=== PATIENT | female | born 1985 | race Caucasian/White ===

== ENCOUNTER 2019-05-16 10:40 | Emergency (ER) | payer OTHER, SELFPAY ==
--- NOTE | ~2019-05-16 | XR_ITS ---
EXAMINATION: XR chest 2V DATE: 05/16/2019 11:37 INDICATION: Cough. TECHNIQUE: Frontal and lateral views of the chest were obtained. COMPARISON: None. FINDINGS: Calcified left lung nodules and calcified left hilar lymph nodes are consistent with old gr anulomatous disease. No pleural effusion or pneumothorax. The heart size is normal. IMPRESSION: 1. No acute cardiopulmonary disease. Reviewed, dictated and finalized at location A. INSTALLER
[2019-05-16 10:55] VITALS: BP 142/79; PULSE 94; RESP 16; TEMP 37.2; O2SAT 98
--- NOTE | 2019-05-16 11:19 | ED.GENADULT ---
HPI - General Adult General Chief complaint: Skin/Abscess/Foreign Body Stated complaint: knots behind lt ear Time Seen by Provider: 05/16/19 11:20 Source: patient and RN notes reviewed Mode of arrival: ambulatory Limitations: no limitations History of Present Illness HPI narrative: 33-year-old female presents with complaints of painful knots behind LT ear for the past 7 days. Denies redness, open areas, or drainage. Chest congestion for the last 4-5 months. Dry cough is persistent, worse when she/he lies down. Feels ill. Chest feels Heavy. Short of breath when ambulating and at rest. Denies high fever or chills. No treatmeant. Exacerbating factors consist of smoke exposure. No nausea, vomiting, and abdominal pain. Denies chest pain, wheezing, coughing up blood, difficulty swallowing, jaw pain, dental pain, facial pain, foreign body sensation, and rash. Some parts of this dictation were generated by voice recognition software and may contain typographical and/or grammatical inaccuracies. Related Data Home Medications Medication Instructions Recorded Confirmed buprenorphine-naloxone 8 film SUBLINGUAL 05/16/19 fluoxetine [Prozac] 40 mg PO BID 05/16/19 05/16/19 hydroxyzine HCl 50 mg PO TID 05/16/19 05/16/19 Allergies Allergy/AdvReac Type Severity Reaction Status Date / Time codeine Allergy Intermediate hives Verified 05/16/19 11:00 Review of Systems Review of Systems: Narrative: CONSTITUTIONAL: Denies fever, chills, sweats. EYES: Denies visual changes, redness, discharge. ENT: Complains of rhinorrhea, congestion. Denies sore throat, bilateral otalgia. CARDIOVASCULAR: Denies chest pain, palpitations, edema. RESPIRATORY: Denies wheezing. Complains of dyspnea, persistent dry cough, intermittent productive. GASTROINTESTINAL: Denies abdominal pain, nausea, vomiting, diarrhea. GENITOURINARY: Denies dysuria, hematuria, abnormal discharge. SKIN: SKIN: Denies rash or itching. Complaints of painful knots behind LT ear. MUSCULOSKELETAL: Denies acute back pain, joint pain, or myalgia. NEUROLOGIC: Denies numbness or focal weakness. PSYCHIATRIC: Denies anxiety or depression. [facility] Past Medical History Medical History (Updated 05/22/19 @ 00:32 by APRYL Kaufman) Anxiety Asthma childhood Back pain Depression Substance abuse Surgical History Surgical History (Updated 05/22/19 @ 00:19 by APRYL Kaufman) H/O section X4 Family History Family History (Updated 05/22/19 @ 00:20 by APRYL Kaufman) Other No significant family history Social History Social History (Updated 05/22/19 @ 00:22 by APRYL Kaufman) Smoking status: Current every day smoker Second hand tobacco smoke exposure: No Alcohol intake: former Substance use: former Substance use type: painkillers Last use: 2 years ago, currently on Suboxone Living arrangements: with family Gender identity (if verbalized by the patient): Female Comments At time of signature, agree with nurse past medical, surgical, social, and family history. There is no relevant family history pertinent to the presenting complaint. Exam Narrative: Exam Narrative: GENERAL: This is a well-nourished, well-developed patient, in no apparent distress. Talking in full sentences without deficit and ambulate with steady gait without dyspnea. HEAD: normocephalic, atraumatic. EYES: PERRL. Sclera clear/white. Vision is grossly intact. EARS: Pinna is normal shape and contour. Clear external auditory canals. TMs pearly pal[place] with good cone of light, no erythema or suppuration. No gross hearing deficit. LT ear has 1 less than 0.1cm non-tender posterior auricular lymph node, skin intact, no swelling, erythma, or drainage. NOSE: pink, moist mucosa with good air movement. Mild erythema and enlrged turbinates, clear rhinorrhea. Mouth: moist mucous membranes. THROAT: Mucous membranes moist, posterior pharynx clear. NECK: Ne
[2019-05-16] MEDS: ALBUTEROL SULFATE NEB 2.5 MG/3 ML INH INHALATION (11:40)
[2019-05-16] MEDS: IPRATROPIUM BR 0.02% INH SOLN 0.5 MG/2.5 ML VIAL INHALATION (11:40)
[2019-05-16] MEDS: predniSONE 20 MG TABLET 60 MG PO (11:41)
== END 2019-05-16 12:28 | disposition home or self-care (01) ==
PROVIDERS: Emergency Provider Nurse Practitioner Family
DX: R59.9 Enlarged lymph nodes, unspecified (principal); J40 Bronchitis, not specified as acute or chronic
CPT/HCPCS: 71046; 94640; 99213; G0463; J7512

== ENCOUNTER 2019-08-24 17:16 | Emergency (ER) | payer OTHER, SELFPAY ==
--- NOTE | 2019-08-24 17:27 | ED.LOWEXIN ---
HPI - Extremity Injury (Lower) General Chief Complaint: Extremity Injury, Lower Stated Complaint: swollen right leg Time Seen by Provider: 08/24/19 17:34 Source: patient and RN notes reviewed Mode of arrival: ambulatory Limitations: no limitations History of Present Illness HPI Narrative: 34-year-old female with no history of cardiac or kidney problems presents with concern for right lower leg swelling. Denies injury, trauma, pain, bruising. Reports swelling for several days. Denies any history of similar problems in the past. Denies any trouble breathing, chest pain, cough. Denies calf pain, redness, swelling, tenderness Related Data Home Medications Medication Instructions Recorded Confirmed buprenorphine-naloxone 8 film SUBLINGUAL 05/16/19 fluoxetine [Prozac] 40 mg PO BID 05/16/19 05/16/19 hydroxyzine HCl 50 mg PO TID 05/16/19 05/16/19 Allergies Allergy/AdvReac Type Severity Reaction Status Date / Time codeine Allergy Intermediate hives Verified 05/16/19 11:00 Review of Systems Review of Systems: Narrative: CONSTITUTIONAL: Denies malaise, chills, sweats, or fever. EYES: Denies visual changes, redness, or discharge. CARDIOVASCULAR: Denies chest pain, palpitations. Reports right lower leg anterior edema RESPIRATORY: Denies cough or dyspnea. GENITOURINARY: Denies dysuria or hematuria. SKIN: Denies redness, bruising, rash or itching. MUSCULOSKELETAL: Denies lower leg pain NEUROLOGIC: Denies numbness, weakness, or headache. All systems reviewed & are unremarkable except as noted in HPI and below PMFSH Past Medical History Medical History (Updated 08/24/19 @ 17:44 by Lissette Arias NP) Anxiety Asthma childhood Back pain Depression Substance abuse Surgical History Surgical History (Updated 05/22/19 @ 00:19 by APRYL Kaufman) H/O section X4 Family History Family History (Updated 05/22/19 @ 00:20 by APRYL Kaufman) Other No significant family history Social History Social History (Updated 05/22/19 @ 00:22 by APRYL Kaufman) Smoking status: Current every day smoker Second hand tobacco smoke exposure: No Alcohol intake: former Substance use: former Substance use type: painkillers Last use: 2 years ago, currently on Suboxone Gender identity (if verbalized by the patient): Female Comments At time of signature, agree with nursing past medical, surgical, social and family history. There is no relevant family history pertinent to the presenting complaint Exam Narrative: Exam Narrative: GENERAL: Well-appearing, well-nourished, and in no acute distress. HEAD: Normocephalic, atraumatic. EYES: PERRLA, conjunctivae clear NECK: Supple. CHEST: Speaks in full sentences. No respiratory distress. HEART: Regular rate and rhythm. Normal and equal peripheral pulses. EXTREMITIES: Right lower leg has normal strength and sensation, normal range of motion. 1+ pitting anterior edema. Normal sensation with sensitivity to light touch and pain. No open wounds, no skin tenting, no devitalized tissue or atrophy, no trophic changes, no ecchymosis, no obvious deformity, alignment normal, no point tenderness, nearby joints and structures intact. Distal pulses palpable and equal bilaterally, skin warm, dry, pink. Capillary refill less than 3 seconds. No claudication, erythema, warmth, tenderness SKIN: Warm, dry, no rash. NEURO: Alert and oriented x3. PSYCH: Normal mood and affect Course Course Emergency Course: Discussed with patient limited diagnostic capability [facility] the [facility], transferring to emergency room for further evaluation or following up with her primary care provider. Patient chooses to follow-up with primary care provider. Patient is aware of diagnosis, understands and agrees to treatment plan. Anticipatory guidance given. Patient agrees to follow-up as directed and is aware of reasons to seek care at the emergency department. Portions of this rec
[2019-08-24 17:35] VITALS: BP 136/69; PULSE 82; RESP 16; TEMP 35.7; O2SAT 100
== END 2019-08-24 17:55 | disposition home or self-care (01) ==
PROVIDERS: Emergency Provider Nurse Practitioner; PCP Emergency Medicine
DX: M79.89 Other specified soft tissue disorders (principal); R60.9 Edema, unspecified; F17.210 Nicotine dependence, cigarettes, uncomplicated
CPT/HCPCS: 99213; G0463

== ENCOUNTER 2019-12-20 15:21 | Emergency (ER) | payer OTHER, SELFPAY ==
[2019-12-20] VITALS (7 sets, daily range): BP systolic 120–147; BP diastolic 80–99; PULSE 66–124; RESP 15–22; TEMP 36.6–36.9; O2SAT 96–100
[2019-12-20] MEDS: DICYCLOMINE HCL INJ 20 MG/2 ML VIAL IM (16:45)
[2019-12-20] MEDS: SODIUM CHLORIDE 0.9% IV 1,000 ML 999 ML IV CONT (16:45)
--- NOTE | 2019-12-20 16:58 | PC.NURSE ---
Pt expressed SI to this RN during medication administration. States I dont want to live like this, Im under a lot of stress. Its causing me to want to kill myself. I just want my pain to end. Im so miserable, It makes me want hurt myself. This RN clarified and questioned patient if she is suicidal or having suicidal thoughts. Pt states Yes, right now I am. I have been lately, but I am laying here thinking I want to end it all. I want to cut my wrist. EDP made aware, Pt placed in green scrubs, items removed from room. Belongings placed in safe. Sitter at bedside. Pt on tele monitor, VSS.
--- NOTE | 2019-12-20 17:02 | PC.NURSE ---
Pt unable to provide u/a sample at this time, requesting to wait until fluids infuse. Declined straight cath.
[2019-12-20 17:14] LABS: Basophils Percent Auto 0.3 % (0.2-1.2); Eosinophils Percent Auto 0.2 % (0-4.4); Hematocrit 37.9 % (37.0-47.0); Hemoglobin 13.1 g/dL (12.0-15.0); Immature Granulocyte Absolute 0.04 K/mm3 (0.00-0.031); Immature Granulocyte Percent A 0.4 % (0-0.5); Lymphocytes Absolute Auto 1.74 K/mm3 (0.9-3.2); Lymphocytes Percent Auto 17.2 % (18.3-44.2); Mean Corpuscular HGB Conc 34.6 g/dl (32-36); Mean Corpuscular Hemoglobin 29.7 pg (26-34); Mean Corpuscular Volume 85.9 fl (80-100); Mean Platelet Volume 9.8 fl (7.4-10.4); Monocytes Absolute Auto 0.5 K/mm3 (0.1-0.6); Monocytes Percent Auto 4.8 % (2.6-8.5); Neutrophils Absolute Auto 7.8 K/mm3 (1.3-6.7); Neutrophils Percent Auto 77.1 % (45.5-73.1); Platelet Count Result 317 k/mm3 (150-375); Red Blood Count 4.41 M/mm3 (4.2-5.4); Red Cell Distribution Width 14.5 % (11.5-14.5); White Blood Count 10.1 K/mm3 (4.5-10.0)
[2019-12-20 17:23] LABS: Alanine Aminotransferase 25 U/L (4-35); Albumin Level 4.9 g/dL (3.5-5.1); Alkaline Phosphatase 59 U/L (38-126); Anion Gap 9 mmol/L (8-16); Aspartate Amino Transferase 21 U/L (14-36); Bilirubin,Total 0.8 mg/dL (0.2-1.3); Blood Urea Nitrogen 14 mg/dL (7-17); Calcium 9.4 mg/dL (8.4-10.2); Carbon Dioxide 21 mmol/L (22-30); Chloride 108 mmol/L (98-107); Estimated CRCL calculation 78 ml/min; Estimated Glomerular Filt Rate > 60; Glucose 99 mg/dL (65-105); Lipase 55 U/L (23-300); Sodium 138 mmol/L (137-145)
--- NOTE | 2019-12-20 17:44 | ED.GENADULT ---
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 Patient complaining of jerky legs, jerking neck, shortness of breath, diaphoresis, stomach upset and diarrhea. Last fentanyl use 3 days ago. Patient scheduled to start Suboxone on December 24. Patient does not feel that she could go back home and would like to go to [place] or [place]. Patient reported suicidal ideation, does not have a specific plan. Related Data Home Medications Medication Instructions Recorded Confirmed buprenorphine-naloxone 8 film SUBLINGUAL 05/16/19 fluoxetine [Prozac] 40 mg PO BID 05/16/19 05/16/19 hydroxyzine HCl 50 mg PO TID 05/16/19 05/16/19 Allergies Allergy/AdvReac Type Severity Reaction Status Date / Time codeine Allergy Intermediate hives Verified 12/20/19 15:42 Review of Systems Review of Systems: Narrative: CONSTITUTIONAL: Denies fever, chills, or sweats. EYES: Denies visual changes, redness, or discharge. ENT: Denies rhinorrhea, congestion, sore throat, or otalgia. CARDIOVASCULAR: Denies chest pain, palpitations, or edema. RESPIRATORY: Denies cough or dyspnea. GASTROINTESTINAL: Denies abdominal pain, nausea, vomiting, or diarrhea. GENITOURINARY: Denies dysuria or hematuria. SKIN: Denies rash or itching. MUSCULOSKELETAL: Denies back pain, joint pain, or myalgia. NEUROLOGIC: Denies headache, numbness, or weakness. PSYCHIATRIC: Anxiety and depression [facility] Past Medical History Medical History Anxiety Asthma childhood Back pain Depression Substance abuse Surgical History Surgical History H/O section X4 Family History Family History Other No significant family history Social History Social History Smoking status: Current every day smoker Second hand tobacco smoke exposure: No Alcohol intake: former Substance use: former Substance use type: painkillers Last use: 2 years ago, currently on Suboxone Gender identity (if verbalized by the patient): Female Exam Narrative: Exam Narrative: General appearance: Well-developed, well-nourished Skin: Normal color Head: Normocephalic, nontraumatic Eyes: Clear conjunctiva ENT: Oropharynx normal, ears normal, nose normal Neck: Supple, nontender Chest and respiratory: Airway patent, no respiratory distress, no accessory muscle use Heart: Regular rate/rhythm Abdomen: Soft, nontender, no organomegaly, quiet bowel sounds Vascular: Normal peripheral pulses, normal capillary refill. Musculoskeletal: Normal range of motion, nontender back Neurologic: Alert and oriented ?3, [employer] is normal as tested, no gross motor deficit Course Course Emergency Course: Improving Vital Signs Vital signs: Vital Signs Temperature 36.9 C 12/20/19 15:28 Pulse Rate 124 H 12/20/19 15:28 Respiratory Rate 20 12/20/19 15:28 Blood Pressure 136/99 H 12/20/19 15:28 Pulse Oximetry 100 12/20/19 15:28 Temperature 36.9 C 12/20/19 15:28 Pulse Rate 89 12/20/19 16:55 Respiratory Rate 20 12/20/19 16:55 Blood Pressure 137/92 H 12/20/19 16:55 Pulse Oximetry 96 12/20/19 16:55 Medical Decision Making Vital Signs Vital Signs: Vital Signs
[2019-12-20 18:30] LABS: Amphetamine Screen Urine Negative (Negative); Barbiturate Screen Urine Negative (Negative); Benzodiazepines Screen Urine Negative (Negative); Cannabinoid Screen Urine Positive (Negative); Cocaine Screen Urine Negative (Negative); Methadone Screen Urine Negative (Negative); Opiate Screen Urine Negative (Negative); Phencyclidine Screen Urine Negative (Negative)
--- NOTE | 2019-12-20 20:00 | PC.NURSE ---
Patient reports of having suicidal ideations. She says I think about it because of the pain I am in. She does not elaborate on this when asked. She does tell me that she has had previous suicidal ideations but that she has never had a suicide attempt. When asked if she has a plan, she states I'll cut my wrists or something. When talking to me she does not look at me and rolls on her side to face away from me. She is otherwise appropriate with me and is calm and cooperative. She denies to me that she has ever had any psychiatric treatment or hospitalization. At this time she is awake, alert, and oriented. Patient given blanket and lights dimmed per her request. Sitter is with the patient at this time.
[2019-12-20] MEDS: NICOTINE (*PBKC) 21 MG PATCH 1 PATCH TRANSDERM (23:09)
[2019-12-21 01:01] VITALS: BP 131/94; PULSE 70; RESP 16; O2SAT 99
[2019-12-21 02:01] VITALS: BP 126/83; PULSE 84; RESP 13; O2SAT 97
[2019-12-21 02:49] LABS: Ethanol < 10 mg/dL (<10)
--- NOTE | 2019-12-21 03:28 | ECG_ITS ---
Measurements Intervals [place] Rate: 81 P: 47 PA: 126 QRS: 61 QRSD: 90 T: 51 QT: 370 QTc: 430 Interpretive Statements SINUS RHYTHM DELAYED PRECORDIAL R/S TRANSITION BORDERLINE ECG Electronically Signed On 12-21-2019 7:41:58 CDT by Aroldo Lazo D.O.
[2019-12-21 03:45] VITALS: BP 137/94; PULSE 80; RESP 18; O2SAT 97
[2019-12-21] MEDS: LORazepam 1 MG TABLET PO (04:40)
[2019-12-21] MEDS: cloNIDine 0.1 MG/24 HR PATCH 1 PATCH TRANSDERM (04:44)
[2019-12-21 07:23] VITALS: BP 137/83; PULSE 91; RESP 16
--- NOTE | 2019-12-21 07:23 | PC.NURSE ---
pt resting quietly on stretcher. no distress noted. [facility]
[2019-12-21] MEDS: IBUPROFEN 400 MG TABLET 800 MG PO (08:40)
[2019-12-21 10:08] VITALS: BP 133/81; PULSE 85; RESP 16; O2SAT 97
--- NOTE | 2019-12-21 11:46 | PC.NURSE ---
Vikki called at this time and was informed that the patient was on the way to their facility.
[2019-12-21 13:39] LABS: SARS-CoV-2 RNA PCR Positive
== END 2019-12-21 11:47 ==
PROVIDERS: Emergency Medicine; Emergency Provider Emergency Medicine; PCP Emergency Medicine
DX: R45.851 Suicidal ideations (principal); F32.9 Major depressive disorder, single episode, unspecified
CPT/HCPCS: 36415; 80053; 80307; 81025; 83690; 85025; 87635; 93005; 96361; 96372; 96374; 96375; 99285; A9270; C9803; J0500; J2060; J3360; J7030; U0003

== ENCOUNTER 2021-02-15 17:29 | Emergency (ER) | payer OTHER, SELFPAY ==
[2021-02-15 17:40] VITALS: BP 123/74; PULSE 84; RESP 16; TEMP 36.2; O2SAT 100
--- NOTE | 2021-02-15 19:22 | ED.GENADULT ---
HPI - General Adult General Chief complaint: Upper Respiratory Infection Stated complaint: right side facial pain/swelling Time Seen by Provider: 02/15/21 18:24 Source: patient Mode of arrival: ambulatory Limitations: no limitations History of Present Illness HPI narrative: Patient presents with complaint of laryngitis, dry cough, sinus pain, headache and fatigue x4 days. Patient reports that her kids also has cold-like symptoms and is one of the children was diagnosed with strep throat. Patient states that she has not been to see her primary care today and was directed to the emergency department for further evaluation. She states when she informed them of the pain to the right side of her face and sinuses and swelling she may need a CT of her face. Patient does not have any fever, nausea, vomiting, shortness of breath, chest pain. Related Data Home Medications Medication Instructions Recorded Confirmed buprenorphine-naloxone 8 film SUBLINGUAL 05/16/19 fluoxetine [Prozac] 40 mg PO BID 05/16/19 05/16/19 hydroxyzine HCl 50 mg PO TID 05/16/19 05/16/19 Allergies Allergy/AdvReac Type Severity Reaction Status Date / Time codeine Allergy Intermediate hives Verified 02/15/21 18:13 Review of Systems Review of Systems: CONSTITUTIONAL: Denies fever, chills, or sweats. EYES: Denies visual changes, redness, or discharge. ENT: Reports rhinorrhea, congestion, sore throat, or otalgia. CARDIOVASCULAR: Denies chest pain, palpitations, or edema. RESPIRATORY: Reports cough denies dyspnea. GASTROINTESTINAL: Denies abdominal pain, nausea, vomiting, or diarrhea. GENITOURINARY: Denies dysuria or hematuria. SKIN: Denies rash or itching. MUSCULOSKELETAL: Denies back pain, joint pain, or myalgia. NEUROLOGIC: Denies headache, numbness, dizziness, or weakness. PSYCHIATRIC: Denies anxiety or depression. [facility] Past Medical History Medical History (Updated 02/15/21 @ 19:43 by Antonio Shepard PA-C) Anxiety Asthma childhood Back pain Depression Substance abuse Surgical History Surgical History H/O section X4 Family History Family History Other No significant family history Social History Social History Smoking status: Current every day smoker Second hand tobacco smoke exposure: No Alcohol intake: former Substance use: former Substance use type: painkillers Last use: 2 years ago, currently on Suboxone Gender identity (if verbalized by the patient): Female Exam Narrative: GENERAL: Well-appearing, well-nourished, and in no acute distress. HEAD: Normocephalic, atraumatic. EYES: PERRLA and EOMI. ENT: Nares clear, no rhinorrhea or epistaxis.Mild erythema to nasal passages with mild erythema. Mucous membranes moist. Oropharynx without tonsillar hypertrophy exudate or other lesions. Bilateral TMs pearly [place] nonbulging. Course voice. Patient reports tenderness with percussion of frontal and maxillary sinuses. No purulent drainage. NECK: Supple. No adenopathy or masses. CHEST: Clear to auscultation. No respiratory distress. No wheezes rales or rhonchi HEART: Regular rate and rhythm. No murmur heard. Normal peripheral pulses. EXTREMITIES: Normal range of motion. No edema. SKIN: Warm, dry, no rash. NEURO: No focal deficits. Alert and oriented x3. PSYCH: Normal mood and affect. Course Vital Signs Vital signs: Vital Signs Temperature 97.2 F L 02/15/21 17:40 Pulse Rate 84 02/15/21 17:40 Respiratory Rate 16 02/15/21 17:40 Blood Pressure 123/74 02/15/21 17:40 Pulse Oximetry 100 02/15/21 17:40 Temperature 97.2 F L 02/15/21 17:40 Pulse Rate 84 02/15/21 17:40 Respiratory Rate 16 02/15/21 17:40 Blood Pressure 123/74 02/15/21 17:40 Pulse Oximetry 100 02/15/21 17:40 Medical Decision Making MDM Narrative Medical dec
[2021-02-15] MEDS: BENZONATATE 100 MG CAPSULE 200 MG PO (20:05)
[2021-02-15] MEDS: OXYMETAZOLINE HCL 0.05% NAS 15 ML BTL (*BKC) 2 SPRAY NASAL (20:05)
[2021-02-16 16:54] LABS: SARS-CoV-2 RNA PCR Negative
== END 2021-02-15 20:10 | disposition home or self-care (01) ==
PROVIDERS: Physician Assistant; Emergency Provider Emergency Medicine; PCP Emergency Medicine
DX: B34.9 Viral infection, unspecified (principal); F17.200 Nicotine dependence, unspecified, uncomplicated; Z20.822 Contact with and (suspected) exposure to COVID-19
CPT/HCPCS: 87081; 87880; 99283; A9270; C9803; U0003; U0005

== ENCOUNTER 2021-10-22 09:43 | Outpatient (CLI) | payer OTHER, SELFPAY ==
--- NOTE | ~2021-10-22 | XR_ITS ---
XR lumbar spine 2-3V DATE: 10/22/2021 10:18 INDICATION: Chronic TECHNIQUE: AP, lateral and lumbosacral views COMPARISON: None FINDINGS: Normal alignment lumbar spine. No fracture or bone destruction. The included lower thoracic and lumbar pedicles are intact. There is minimal degenerative spurring at L3-4. The sacroiliac joints are intact. IMPRESSION: Minimal degenerative change Reviewed, dictated and finalized at location A. IMPRESSION: Minimal degenerative change
--- NOTE | ~2021-10-22 | XR_ITS ---
XR hip BI wo pelvis DATE: 10/22/2021 10:18 INDICATION: Chronic bilateral hip pain TECHNIQUE: AP and lateral views of each hip COMPARISON: None FINDINGS: No fracture or dislocation, avascular necrosis or bone destruction or significant joint spa ce narrowing or any spurring of either hip is noted. The pubic symphysis and sacroiliac joints are in tact. IMPRESSION: Negative Reviewed, dictated and finalized at location A. IMPRESSION: Negative
--- NOTE | ~2021-10-22 | XR_ITS ---
EXAMINATION: XR chest 2V DATE: 10/22/2021 10:17 INDICATION: Tobacco use. Low back pain. TECHNIQUE: PA and lateral views of the chest were obtained. COMPARISON: Chest radiograph dated 05/16/2019 FINDINGS: Unchanged calcified nodule at the lateral left lower lung zone consistent with old granulomatous dise ase. Lungs are otherwise clear with no airspace opacities, pulmonary edema, pleural effusion or pneum othorax. The cardiomediastinal silhouette is normal. Visualized bones and soft tissues are unremarkab le. IMPRESSION: 1. No acute cardiopulmonary disease. Reviewed, dictated and finalized at location B.
--- NOTE | ~2021-10-22 | XR_ITS ---
EXAMINATION: XR hand LT min 3V, XR hand RT min 3V DATE: 10/22/2021 10:17 INDICATION: Chronic pain at the bilateral hands TECHNIQUE: 1. Posteroanterior, oblique and lateral views of the left hand were obtained. 2. Posteroanterior, oblique and lateral views of the right hand were obtained. COMPARISON: None. FINDINGS: Previously seen diaphyseal fracture of the left fourth metacarpal has healed with some residual short ening of the metacarpal. Bone alignment is otherwise normal at the bilateral hands and wrists. No acu te fracture. Joint spaces are normal. No erosions. Soft tissues are unremarkable. IMPRESSION: 1. Mild shortening of the left fourth metacarpal following healing of a prior fracture. Otherwise nor mal bilateral hand radiographs. Reviewed, dictated and finalized at location B. IMPRESSION: 1. Mild shortening of the left fourth metacarpal following healing of a prior f racture. Otherwise normal bilateral hand radiographs.
[2021-10-22 10:47] LABS: Hematocrit 35.5 % (37.0-47.0); Hemoglobin 11.5 g/dL (12.0-15.0); Mean Corpuscular HGB Conc 32.4 g/dl (32-36); Mean Corpuscular Volume 86.6 fl (80-100); Mean Platelet Volume 9.2 fl (7.4-10.4); Platelet Count Result 303 k/mm3 (150-375); Red Cell Distribution Width 13.9 % (11.5-14.5)
[2021-10-22 11:00] LABS: Alanine Aminotransferase 58 U/L (6-35); Albumin Level 4.3 g/dL (3.5-5.1); Alkaline Phosphatase 57 U/L (38-126); Anion Gap 5 mmol/L (8-16); Aspartate Amino Transferase 34 U/L (14-36); Bilirubin,Total 0.3 mg/dL (0.2-1.3); Blood Urea Nitrogen 14 mg/dL (7-17); Calcium 8.6 mg/dL (8.4-10.2); Carbon Dioxide 27 mmol/L (22-30); Chloride 107 mmol/L (98-107); Cholesterol 172 mg/dL (0-200); Estimated Glomerular Filt Rate > 60; Glucose 96 mg/dL (65-110); HDL Direct 46 mg/dL; Potassium 4.1 mmol/L (3.4-5.0); Sodium 139 mmol/L (137-145); Triglycerides 91 mg/dL (<150)
[2021-10-22 11:01] LABS: Appearance Urine Clear (Clear); Bilirubin Urine Negative (Negative); Blood Urine 2+ (Negative); Color Urine Yellow (Yellow); Glucose Urine UA Negative (Negative); Ketones Urine Negative (Negative); Leukocyte Esterase Ur Negative LEU/UL (NEGATIVE); Nitrate Urine Negative (Negative); Protein Urine Negative (Negative); Specific Grav Ur >= 1.030 (1.001-1.035); Urobilinogen Urine 0.2 mg/dL (<2.0); pH Urine 5.5 (5.0-9.0)
[2021-10-22 11:11] LABS: LDL Cholesterol Direct 91 mg/dL
[2021-10-22 11:13] LABS: Mucus Urine Few /lpf; RBC Urine 0-2 /hpf (0-2); Squamous Epithelial Cell Urine Moderate /hpf (Few); WBC Urine 0-3 /hpf (0-3)
[2021-10-22 11:26] LABS: Add Urine Microscopic? YES
[2021-10-22 11:39] LABS: Creatinine Urine 256.1 mg/dL
[2021-10-22 11:44] LABS: MALB Creatinine Ratio 2.9 mg/g (0-30); Microalbumin Urine Random 7.4 mg/L (0-16.7)
[2021-10-22 11:55] LABS: Free T4 Free Thyroxine 1.01 ng/mL (0.78-2.19); Vitamin D 25 Hydroxy 43.5 ng/mL
[2021-10-22 13:06] LABS: Rheumatoid Factor < 8.6 IU/ML (<12)
[2021-10-22 13:20] LABS: Erythrocyte Sedimentation Rate 19 mm/hr (0-20)
[2021-10-22 14:21] LABS: Hemoglobin A1C 5.1 % (<5.7)
== END 2021-10-22 09:44 | disposition home or self-care (01) ==
PROVIDERS: PCP Emergency Medicine; Visit Provider Emergency Medicine
DX: M25.551 Pain in right hip (principal); M25.552 Pain in left hip; M54.50 Low back pain, unspecified; Z72.0 Tobacco use
CPT/HCPCS: 36415; 71046; 72100; 73130; 73521; 80053; 80061; 81001; 82043; 82306; 83036; 84439; 85027; 85652; 86038; 86430